=== PATIENT | female | born 1975 | race American Indian/Alaskan Native ===

== ENCOUNTER 2017-10-24 10:48 | Emergency (ER) | payer SELFPAY ==
--- NOTE | 2017-10-24 11:32 | Emergency Department Report ---
Blank Doc - Documentation Documentation: Patient is a 42-year-old Female who is presenting with some low abdominal cramping. Patient took a test approximately week ago which was positive at home. Patient last missed her period was a little over a month ago. Patient states she has some spotting yesterday but the spotting has resolved but the cramping is not. Patient also has some mild nausea which also has resolved. Brief focused physical exam patient has normal heart and lung exams abdomen soft and nontender. Patient will be sent for ultrasound quant and a urinalysis have been ordered.
--- NOTE | 2017-10-24 12:04 | Emergency Department Report ---
<ION TOWNSEND Samra - Last Filed: 10/24/17 12:04> ED Abdominal Pain HPI - General Chief Complaint: Abdominal Pain Stated Complaint: /ABD PAIN Time Seen by Provider: 10/24/17 11:24 Source: patient Mode of arrival: Ambulatory Limitations: No Limitations - Related Data Allergies Allergy/AdvReac Type Severity Reaction Status Date / Time No Known Allergies Allergy Unverified 10/24/17 10:53 ED Review of Systems ROS: Stated complaint: /ABD PAIN Other details as noted in HPI ED Past Medical Hx - Past Medical History Previous Medical History?: No - Surgical History Past Surgical History?: No - Social History Smoking Status: Never Smoker Substance Use Type: None ED Physical Exam - General Limitations: No Limitations ED Course Vital Signs 10/24/17 10:54 Temperature 98.2 F Pulse Rate 79 Respiratory 16 Rate Blood Pressure 118/74 O2 Sat by Pulse 100 Oximetry Critical care attestation.: If time is entered above; I have spent that time in minutes in the direct care of this critically ill patient, excluding procedure time. ED Disposition Clinical Impression: IUP (intrauterine ), incidental, Threatened miscarriage Subchorionic hematoma in first trimester Qualifiers: Fetus number: single or unspecified fetus Qualified Code(s): O41.8X10 - Other specified disorders of amniotic fluid and membranes, first trimester, not applicable or unspecified; O46.8X1 - Other antepartum hemorrhage, first trimester Disposition: DC-01 TO HOME OR SELFCARE Condition: Stable Instructions: Threatened Miscarriage (ED) Referrals: CARYN SHEPPARD MD [Staff Physician] - 3-5 Days <CORTNEY DEVRIES - Last Filed: 10/24/17 14:32> ED Abdominal Pain HPI - History of Present Illness Initial Comments: Please see my previous note for complete history Complaint: abdominal pain Location: suprapubic Radiation: none Severity scale (0 -10): 6 Quality: cramping Associated Symptoms: nausea. denies: diarrhea, fever, chills, constipation, dysuria, hematemesis, melena, hematuria, anorexia, syncope ED Review of Systems Comment: All other systems reviewed and negative ED Physical Exam - General General appearance: alert, in no apparent distress - Head Head exam: Present: atraumatic, normocephalic - Eye Eye exam: Present: normal appearance - ENT ENT exam: Present: mucous membranes moist - Neck Neck exam: Present: normal inspection - Respiratory Respiratory exam: Present: normal lung sounds bilaterally. Absent: respiratory distress, wheezes, rales - Cardiovascular Cardiovascular Exam: Present: regular rate, normal rhythm. Absent: systolic murmur, diastolic murmur, rubs, gallop - GI/Abdominal GI/Abdominal exam: Present: soft, normal bowel sounds. Absent: distended, tenderness, guarding, rebound - Extremities Exam Extremities exam: Present: normal inspection - Back Exam Back exam: Present: normal inspection - Neurological Exam Neurological exam: Present: alert, oriented X3 - Psychiatric Psychiatric exam: Present: normal affect, normal mood - Skin Skin exam: Present: warm, dry, intact, normal color. Absent: rash ED Medical Decision Making - Lab Data Lab Results 10/24/17 10/24/17 10/24/17 Range/Units 11:35 11:41 11:41 HCG, Quant 63334 H (0-4) mIU/mL Urine Color Straw (Yellow) Urine Turbidity Clear (Clear) Urine pH 8.0 H (5.0-7.0) Ur Specific [place] 1.005 (1.003-1.030) Urine Protein <15 mg/dl (Negative) mg/dL Urine Glucose (UA) Neg (Negative) mg/dL Urine Ketones Neg (Negative) mg/dL Urine Blood Neg (Negative) Urine Nitrite Neg (Negative) Urine Bilirubin Neg (Negative) Urine Urobilinogen < 2.0 (<2.0) mg/dL Ur Leukocyte Esterase Neg (Negative) Urine WBC (Auto) 1.0 (0.0-6.0) /HPF Urine RBC (Auto) 3.0 (0.0-6.0) /HPF U Epithel Cells (Auto) 3.0 (0-13.0) /HPF Urine Bacteria (Auto) 1+ (Negative) /HPF Blood Type B POSITIVE - Radiology Data Ordering Physician: CORTNEY DEVRIES MD Date of Service: 10/24/17 Procedure(s): US OB transvaginal Accession Number(s): [id number] cc: CORTNEY DEVRIES MD FINAL REPORT EXAM: US OB TRANSVAGINAL HISTORY: preg with vag bleed , [place] , [place] [id number] TECHNIQUE: Ultrasound evaluation of the gravid uterus with endovaginal technique PRIORS: Transabdominal Ob ultrasound 10/24/2017 FINDINGS: A gestational sac is present in the endometrial cavity containing a yolk sac and pole. viability is documented with evidence of cardiac activity. pole crown-rump length: 4.3 mm heart rate: 104 beats per minute Average estimated gestational age by ultrasound: 6 weeks 4 days Estimated delivery date: 06/15/2018 The uterine echotexture is homogenous and without evidence of mass. Nonspecific hypoechoic structure adjacent to the gestational sac is suggestive of subchorionic hemorrhage measuring 9 x 20 x 16 mm. No evidence of solid ovarian mass. 21 mm nonspecific simple appearing cyst in right ovary may be a corpus luteum. The adnexa are normal. There is nonspecific minimal cul-de-sac free fluid. IMPRESSION: Single viable early intrauterine with the above parameters Small hypoechoic collection adjacent to the gestational sac suggestive of subchorionic hemorrhage Simple appearing cyst in right ovary may be a corpus luteum Nonspecific minimal cul-de-sac free fluid may be physiologic Transcribed By: BAL Dictated By: AMARILYS WILCOX MD Electronically Authenticated By: AMARILYS WILCOX MD Signed Date/Time: 10/24/17 3063 - Medical Decision Making Patient was given educational information regarding subchorionic hemorrhages. Patient does have a viable IUP present. Patient instructed to do pelvic rest and rest until her bleeding and pain subsides. Patient referred to ENVIRONMENTAL EPIDEMIOLOGIST here in the [place] since the patient is from [place]. ED Disposition Is pt being admited?: No Does the pt Need Aspirin: No Time of Disposition: 14:31
[2017-10-24 12:12] LABS: Bacteria,Urine 1+ /HPF (Negative); Bilirubin,Urine NEG (Negative); Blood,Urine NEG (Negative); Color,Urine Straw (Yellow); Protein,Urine <15 mg/dL mg/dL (Negative); Urobilinogen,Urine < 2.0 mg/dL (<2.0)
--- NOTE | 2017-10-24 13:59 | Ultrasound Report ---
FINAL REPORT EXAM: US OB TRANSVAGINAL HISTORY: preg with vag bleed , [place] , [place] [id number] TECHNIQUE: Ultrasound evaluation of the gravid uterus with endovaginal technique PRIORS: Transabdominal Ob ultrasound 10/24/2017 FINDINGS: A gestational sac is present in the endometrial cavity containing a yolk sac and pole. viability is documented with evidence of cardiac activity. pole crown-rump length: 4.3 mm heart rate: 104 beats per minute Average estimated gestational age by ultrasound: 6 weeks 4 days Estimated delivery date: 06/15/2018 The uterine echotexture is homogenous and without evidence of mass. Nonspecific hypoechoic structure adjacent to the gestational sac is suggestive of subchorionic hemorrhage measuring 9 x 20 x 16 mm. No evidence of solid ovarian mass. 21 mm nonspecific simple appearing cyst in right ovary may be a corpus luteum. The adnexa are normal. There is nonspecific minimal cul-de-sac free fluid. IMPRESSION: Single viable early intrauterine with the above parameters Small hypoechoic collection adjacent to the gestational sac suggestive of subchorionic hemorrhage Simple appearing cyst in right ovary may be a corpus luteum Nonspecific minimal cul-de-sac free fluid may be physiologic
--- NOTE | 2017-10-24 14:02 | Ultrasound Report ---
FINAL REPORT EXAM: US OB < = 14 WEEKS FETUS, TRANSABDOMINAL HISTORY: preg with vag bleed TECHNIQUE: Ultrasound evaluation of the gravid uterus, transabdominal PRIORS: Endovaginal pelvic ultrasound 10/24/2017 FINDINGS: A gestational sac is present in the endometrial cavity containing a yolk sac and pole. viability is documented with evidence of cardiac activity. pole crown-rump length: 4.3 mm heart rate: 104 beats per minute Average estimated gestational age by ultrasound: 6 weeks 4 days Estimated delivery date: 06/15/2018 The uterine echotexture is homogenous and without evidence of mass. Nonspecific hypoechoic structure adjacent to the gestational sac is suggestive of subchorionic hemorrhage measuring 16 x 10 x 13 mm. No evidence of solid ovarian mass. 21 mm nonspecific simple appearing cyst in right ovary may be a corpus luteum. Similar structure left ovary measures 13 mm. The adnexa are normal. There is no visualized cul-de-sac free fluid. IMPRESSION: Single viable early intrauterine with the above parameters Small hypoechoic collection adjacent to the gestational sac suggestive of subchorionic hemorrhage Simple appearing cyst in right and left ovaries may be a corpus luteum
[2017-10-24 14:40] VITALS: BP 116/71
== END 2017-10-24 14:39 | disposition home or self-care (01) ==
LOC: ED 10:48
DX: O20.0 Threatened abortion (principal); O41.8X10 Other specified disorders of amniotic fluid and membranes, first trimester, not applicable or unspecified; Z3A.01 Less than 8 weeks gestation of pregnancy
CPT/HCPCS: 36415; 76801; 76817; 81001; 84702; 86900; 86901; 99284

== ENCOUNTER 2018-05-21 17:08 | Outpatient (CLI) | payer SELFPAY ==
[2018-05-21 18:26] VITALS: BP 116/76
--- NOTE | 2018-05-21 21:40 | Ultrasound Report ---
PROCEDURE: US OB LIMITED TECHNIQUE: Sonographic evaluation for breathing, movement, tone, and amniotic flui d volume was performed. HISTORY: Non reassuring NST COMPARISONS: None . FINDINGS: FETUS Amniotic fluid volume Normal-score 2. At least one vertical pocket >2 cm or more in vertical axis . breathing: Normal-score 2 . movement: Normal-score 2 . tone: Normal-score 2 . Score: 8 of 8 . IMPRESSION: Normal biophysical profile . This document is electronically signed by Marely Renteria MD., May 21 2018 09:38:15 PM ET
--- NOTE | 2018-05-21 21:44 | Ultrasound Report ---
PROCEDURE: Ultrasound limited TECHNIQUE: Real-time limited sonographic examination was performed for evaluation of amniotic fluid for each fetus with image documentation (1 or more fetuses). HISTORY: Nonreassuring NST COMPARISONS: None . FINDINGS: FETUS IUP: Single living intrauterine . Position: Cephalic . Amniotic fluid volume: Amniotic fluid index measures 10.5 cm Heart rate and rhythm: 167 BPM, Regular . IMPRESSION: Amniotic fluid index measures 10.5 cm. This document is electronically signed by Marely Renteria MD., May 21 2018 09:42:29 PM ET
== END 2018-05-21 19:42 | disposition home or self-care (01) ==
LOC: TRG 17:08
PROVIDERS: ATTEND Obstetrics & Gynecology
DX: O47.03 False labor before 37 completed weeks of gestation, third trimester (principal); Z3A.36 36 weeks gestation of pregnancy
CPT/HCPCS: 76815; 76819

== ENCOUNTER 2018-06-18 02:43 | Inpatient (IN) | payer OTHER ==
[2018-06-18] MEDS ORDERED: ceFAZolin 2 GM in NACL 0.9% 100 ML IV ONE (04:00)
[2018-06-18] MEDS ORDERED: LACTATED RINGERS 1,000 ML IV SCH (04:00)
[2018-06-18] MEDS ORDERED: POLYCILLIN/NS 2 GM/100 ML 2 GM/100 ML BAG IV ONE ×2 (04:50→05:00)
[2018-06-18] MEDS: STADOL IV PRN ×2 (04:56→15:43)
[2018-06-18] MEDS: LACTATED RINGERS 1,000 ML IV SCH ×2 (04:57→13:53)
[2018-06-18 05:01] LABS: Hematocrit 39.3 % (30.3-42.9); Mean Corpuscular HGB Conc 36 % (30-34); Mean Corpuscular Hemoglobin 30 pg (28-32); Mean Corpuscular Volume 84 fl (79-97); Platelet Count 170 K/mm3 (140-440); Red Blood Count 4.67 M/mm3 (3.65-5.03); Red Cell Distribution Width 14.9 % (13.2-15.2)
[2018-06-18] MEDS ORDERED: AMPICILLIN/NS 1 GM/50 ML 1 GM/50 ML BAG IV SCH (07:20)
[2018-06-18] MEDS ORDERED: BRETHINE SUB-Q PRN (13:00)
[2018-06-18] MEDS ORDERED: BRETHINE IVP PRN (13:00)
[2018-06-18] MEDS ORDERED: XYLOCAINE 2% INFILTRATI ONE (13:00)
[2018-06-18] MEDS ORDERED: MINERAL OIL PO PRN (13:00)
[2018-06-18] MEDS ORDERED: NARCAN 0.4 MG/1 ML IV PRN (13:00)
[2018-06-18] MEDS ORDERED: PITOCin/NS 30 UNIT/500ML 30 UNITS/500 ML BAG IV SCH (13:00)
--- NOTE | 2018-06-18 13:10 | History and Physical Report ---
History of Present Illness Date of examination: 06/18/18 (12:18) Date of admission: 06/18/18 03:47 Chief complaint: Intense labor pains History of present illness: 43 yo Fe , [place] 06/16/2018, 40w2d, presents in active labor. B positive, Rubella Immune, GBS Negative. Pt initiated early care with [facility] at 10 weeks gestation. risks: AMA 43 yo; Neg QUAD & Afp. Maternal SS trait; FOB Negative. 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 This is a different FOB (Neg SST)) Social history: no significant social history, single, lives with family. denies: smoking, alcohol abuse, prescription drug abuse, IV drug use, full code - Obstetrical History Expected Date of Delivery: 06/16/18 Actual Gestation: 40 Week(s) 2 Day(s) : 2 Para: 1 Hx # Term Pregnancies: 0 Number of Pregnancies: 0 Spontaneous Abortions: 0 Induced : 0 Number of Living Children: 1 #1 Gender: Male year: 2005 Birthweight: 4.082 kg Method of Delivery: Vaginal Gestational age at delivery: 40 Complications: none, other (PIH) Medications and Allergies Allergies Allergy/AdvReac Type Severity Reaction Status Date / Time No Known Allergies Allergy Unverified 10/24/17 10:53 Active Meds: Active Medications Butorphanol Tartrate (Stadol) 2 mg IV Q2H PRN PRN Reason: Pain , Severe (7-10) Last Admin: 06/18/18 04:56 Dose: 2 mg Documented by: Ampicillin Sodium (Ampicillin/Ns 1 Gm/50 Ml) 1 gm in 50 mls @ 100 mls/hr IV Q4HR LANEY; Protocol Last Admin: 06/18/18 09:16 Dose: 100 mls/hr Documented by: Lactated Ringer's (Lactated Ringers) 1,000 mls @ 125 mls/hr IV DIRECT LANEY Last Admin: 06/18/18 04:57 Dose: 125 mls/hr Documented by: Review of Systems Eyes: normal appearance Cardiovascular: no chest pain, no rapid/irregular heart beat, no shortness of breath Respiratory: no cough, no shortness of breath Breasts: normal Gastrointestinal: abdominal pain (Contractions), no nausea, no vomiting, no diarrhea, no constipation Genitourinary: normal appearance, contractions, no vaginal bleeding, no vaginal discharge, no leakage of fluid, no dysuria, no pelvic pain, no hematuria, no genital sores Musculoskeletal: other (denies) Integumentary: other (Denies) Neurological: other (Denies) Psychiatric: other (Denies) Endocrine: other (Denies) - Vital Signs Vital signs: Vital Signs Pulse BP 57 L 119/58 06/18/18 03:00 06/18/18 03:00 Temp Pulse Resp BP Pulse Ox 96.9 F L 61 16 123/69 06/18/18 04:28 06/18/18 12:56 06/18/18 07:30 06/18/18 12:56 - Physical Exam Breasts: Positive: normal Cardiovascular: Regular rate, Normal S1, Normal S2, No murmurs Lungs: Positive: Clear to auscultation, Normal air movement Abdomen: Positive: normal appearance, soft, normal bowel sounds. Negative: distention Genitourinary (Female): Positive: normal external genitalia, normal perenium Vulva: both: normal Uterus: Positive: enlarged (Gravid) Anus/Rectum: Positive: normal perianal skin Extremities: Positive: normal - Obstetrical FHR: auscultation normal, category 1 Uterine Contraction Monitor Mode: External Cervical Dilatation: 6 (AROM, Lg amt clear fluid 2 12:18) Cervical Effacement Percentage: 80 station: -2 Uterine Contraction Pattern: Regular Uterine Tone Measurement Phase: Resting Uterine Contraction Intensity: Moderate Results Result Diagrams: 06/18/18 04:30 Abnormal lab results 06/18/18 Range/Units 04:30 MCHC 36 H (30-34) % All other labs normal. Assessment and Plan A: Term IUP at 40w2d AMA; 43 yo GBS Negative Category 1 tracing Active labor AROM 06/18/2018 @12:18, lg amt clear fluid P: Routine labor orders Pain med/Epidural PRN Pitocin Augmentation Anticipate
[2018-06-18] MEDS ORDERED: NARCAN 2 MG/2 ML IV PRN (16:31)
--- NOTE | 2018-06-18 16:33 | Anesthesia Day of Surgery ---
Anesthesia Day of Surgery - Day of Surgery Patient Examined: Yes Patient H&P Reviewed: Yes Patient is NPO: Yes Beta Blockers: No Cardiac Clearance: No Pulmonary Clearance: No Tashi's Test: N/A
--- NOTE | 2018-06-18 16:33 | Anesthesia Consultation ---
Anesthesia Consult and Med Hx - Airway Anesthetic Teeth Evaluation: Good ROM Head & Neck: Adequate Mental/Hyoid Distance: Adequate Mallampati Class: Class I Intubation Access Assessment: Good - Pulmonary Exam CTA: Yes - Cardiac Exam Cardiac Exam: RRR - Pre-Operative Health Status ASA Pre-Surgery Classification: ASA2 Proposed Anesthetic Plan: Epidural - Pulmonary Hx Smoking: No Hx Asthma: No Hx Respiratory Symptoms: No COPD: No Hx Pneumonia: No - Cardiovascular System Hx Hypertension: No Hx Coronary Artery Disease: No Hx Heart Attack/AMI: No Hx Angina: No Hx Percutaneous Transluminal Coronary Angioplasty (PTCA): No Hx Cardia Arrhythmia: No Hx Pacemaker: No Hx Internal Defibrillator: No Hx Valvular Heart Disease: No Hx Heart Murmur: No Hx Peripheral Vascular Disease: No - Central Nervous System Hx Neuromuscular Disorder: No Hx Seizures: No Hx Psychiatric Problems: No - Gastrointestinal Hx Ulcer: No Hx Gastroesophageal Reflux Disease: Yes - Endocrine Hx Renal Disease: No Hx End Stage Renal Disease: No Hx Cirrhosis: No Hx Liver Disease: No Hx Insulin Dependent Diabetes: No Hx Non-Insulin Dependent Diabetes: No Hx Hypothyroidism: No Hx Hyperthyroidism: No - Hematic Hx Anemia: No Hx Sickle Cell Disease: No - Other Systems Hx Alcohol Use: No
[2018-06-18] MEDS ORDERED: fentaNYL-BUPIV 2 MCG/ML-0.125% 200 MCG/100 ML BAG EPIDURAL SCH (17:00)
[2018-06-18] MEDS ORDERED: MARCAINE 0.25% INFILTRATI ONE (17:01)
--- NOTE | 2018-06-18 20:09 | Progress Note ---
Assessment and Plan A: Term IUP at 40w2d AMA; 43 yo GBS Negative Category 1 tracing Active labor Pitocin 1mu Comfortable with epidural P: Routine labor orders Pitocin Augmentation Pt positioned far L lateral Anticipate Subjective - Subjective Date of service: 06/18/18 Principal diagnosis: term IUP, active labor Interval history: 43 yo Fe , [place] 06/16/2018, 40w2d, presents in active labor. B positive, Rubella Immune, GBS Negative. Pt initiated early care with [facility] at 10 weeks gestation. risks: AMA 43 yo; Neg QUAD & Afp. Maternal SS trait; FOB N egative. Patient reports: movement normal, contractions, other (Comfortable with epidural) Objective - Vital Signs Vital Signs: Vital Signs - 12hr 06/18/18 06/18/18 06/18/18 08:55 09:55 10:57 Temperature Pulse Rate 70 84 68 Respiratory Rate Blood Pressure 140/74 127/75 131/72 Blood Pressure [Right] O2 Sat by Pulse Oximetry 06/18/18 06/18/18 06/18/18 11:57 12:56 13:55 Temperature Pulse Rate 109 H 61 75 Respiratory Rate Blood Pressure 131/69 123/69 148/73 Blood Pressure [Right] O2 Sat by Pulse Oximetry 06/18/18 06/18/18 06/18/18 14:56 15:57 17:06 Temperature Pulse Rate 74 70 98 H Respiratory Rate Blood Pressure 117/74 139/76 Blood Pressure [Right] O2 Sat by Pulse 89 Oximetry 06/18/18 06/18/18 06/18/18 17:11 17:14 17:16 Temperature Pulse Rate 93 H 92 H 73 Respiratory Rate Blood Pressure Blood Pressure [Right] O2 Sat by Pulse 98 91 96 Oximetry 06/18/18 06/18/18 06/18/18 17:17 17:19 17:21 Temperature Pulse Rate 74 76 74 Respiratory Rate Blood Pressure 134/58 106/59 80/45 Blood Pressure [Right] O2 Sat by Pulse 97 Oximetry 06/18/18 06/18/18 06/18/18 17:23 17:25 17:26 Temperature Pulse Rate 73 94 H 115 H Respiratory Rate Blood Pressure 84/46 121/70 124/62 Blood Pressure [Right] O2 Sat by Pulse 97 Oximetry 06/18/18 06/18/18 06/18/18 17:29 17:31 17:33 Temperature Pulse Rate 81 79 105 H Respiratory Rate Blood Pressure 133/67 139/62 137/67 Blood Pressure [Right] O2 Sat by Pulse 97 Oximetry 06/18/18 06/18/18 06/18/18 17:35 17:36 17:37 Temperature Pulse Rate 75 67 77 Respiratory Rate Blood Pressure 133/74 130/56 Blood Pressure [Right] O2 Sat by Pulse 98 Oximetry 06/18/18 06/18/18 06/18/18 17:38 17:41 17:43 Temperature Pulse Rate 80 93 H 97 H Respiratory Rate Blood Pressure 129/60 132/62 141/57 Blood Pressure [Right] O2 Sat by Pulse 98 Oximetry 06/18/18 06/18/18 06/18/18 17:45 17:46 17:47 Temperature Pulse Rate 70 62 61 Respiratory Rate Blood Pressure 115/55 116/58 Blood Pressure [Right] O2 Sat by Pulse 99 Oximetry 06/18/18 06/18/18 06/18/18 17:51 17:56 18:01 Temperature Pulse Rate 70 68 68 Respiratory Rate Blood Pressure Blood Pressure [Right] O2 Sat by Pulse 99 98 98 Oximetry 06/18/18 06/18/18 06/18/18 18:02 18:06 18:11 Temperature Pulse Rate 71 61 72 Respiratory Rate Blood Pressure 111/57 Blood Pressure [Right] O2 Sat by Pulse 98 97 Oximetry 06/18/18 06/18/18 06/18/18 18:16 18:18 18:21 Temperature Pulse Rate 64 70 65 Respiratory Rate Blood Pressure 119/61 Blood Pressure [Right] O2 Sat by Pulse 97 97 Oximetry 06/18/18 06/18/18 06/18/18 18:25 18:26 18:31 Temperature Pulse Rate 73 65 74 Respiratory Rate Blood Pressure Blood Pressure [Right] O2 Sat by Pulse 94 97 96 Oximetry 06/18/18 06/18/18 06/18/18 18:33 18:36 18:41 Temperature Pulse Rate 69 59 L 67 Respiratory Rate Blood Pressure 94/52 Blood Pressure [Right] O2 Sat by Pulse 97 96 Oximetry 06/18/18 06/18/18 06/18/18 18:46 18:48 18:51 Temperature Pulse Rate 67 63 75 Respiratory Rate Blood Pressure 101/56 Blood Pressure [Right] O2 Sat by Pulse 98 89 96 Oximetry 06/18/18 06/18/18 06/18/18 18:56 19:01 19:03 Temperature Pulse Rate 75 68 68 Respiratory Rate Blood Pressure 108/52 Blood Pressure [Right] O2 Sat by Pulse 97 98 Oximetry 06/18/18 06/18/18 06/18/18 19:06 19:11 19:16 Temperature Pulse Rate 58 L 75 64 Respiratory Rate Blood Pressure Blood Pressure [Right] O2 Sat by Pulse 95 97 96 Oximetry 06/18/18 06/18/18 06/18/18 19:18 19:21 19:26 Temperature Pulse Rate 65 66 73 Respiratory Rate Blood Pressure 113/58 Blood Pressure [Right] O2 Sat by Pulse 96 94 Oximetry 06/18/18 06/18/18 06/18/18 19:31 19:33 19:36 Temperature 96.9 F L Pulse Rate 76 65 80 Respiratory 18 Rate Blood Pressure 109/55 139/63 Blood Pressure 139/63 [Right] O2 Sat by Pulse 97 98 Oximetry 06/18/18 06/18/18 06/18/18 19:41 19:46 19:47 Temperature Pulse Rate 70 65 64 Respiratory Rate Blood Pressure 102/58 Blood Pressure [Right] O2 Sat by Pulse 98 98 Oximetry 06/18/18 06/18/18 06/18/18 19:51 19:56 20:01 Temperature Pulse Rate 65 66 66 Respiratory Rate Blood Pressure Blood Pressure [Right] O2 Sat by Pulse 97 98 98 Oximetry 06/18/18 20:04 Temperature Pulse Rate 70 Respiratory Rate Blood Pressure 105/52 Blood Pressure [Right] O2 Sat by Pulse Oximetry - Exam Cardiovascular: Regular rate, Normal S1, Normal S2, No murmurs Lungs: Clear to auscultation, Normal air movement Abdomen: Present: normal appearance, soft, normal bowel sounds. Absent: distention Vulva: both: normal (normal bloody show. Clear fluid noted on towel) Uterus: Present: other (gravid) FHR: category 1 Uterine Contraction Monitor Mode: External Cervical Dilatation: 9 Cervical Effacement Percentage: 90 station: 0 Uterine Contraction Frequency (min): 2-5 Uterine Contraction Pattern: Regular Uterine Tone Measurement Phase: Resting Uterine Contraction Intensity: Moderate Extremities: normal Deep Tendon Reflex Grade: Normal +2 - Labs Labs: Abnormal Labs 06/18/18 04:30 MCHC 36 H Laboratory Results - last 24 hr 03/28/19 03/28/19 04:30 04:30 WBC 8.9 RBC 4.67 Hgb 14.0 Hct 39.3 MCV 84 MCH 30 MCHC 36 H RDW 14.9 Plt Count 170 Blood Type B POSITIVE Antibody Screen Negative
[2018-06-18] MEDS: PITOCin/NS 20 UNIT/1000ML DRIP 20 UNITS/1,000 ML BAG IV SCH ×2 (21:30→22:42)
[2018-06-18] MEDS ORDERED: LANSINOH TP PRN (22:01)
[2018-06-18] MEDS ORDERED: NORCO 5/325 PO PRN (22:01)
[2018-06-18] MEDS ORDERED: DULCOLAX PR PRN (22:01)
[2018-06-18] MEDS ORDERED: ZOFRAN IV PRN (22:01)
[2018-06-18] MEDS ORDERED: TYLENOL PO PRN (22:01)
[2018-06-18] MEDS ORDERED: BENADRYL PO PRN (22:01)
[2018-06-18] MEDS ORDERED: PHENERGAN PO PRN (22:01)
[2018-06-18] MEDS ORDERED: MILK OF MAGNESIA PO PRN (22:01)
[2018-06-18] MEDS ORDERED: TUCKS PAD TP PRN (22:01)
--- NOTE | 2018-06-18 22:09 | Procedure Note ---
OB Delivery Note - Delivery Date of Delivery: 06/18/18 (21:29) Surgeon: DEE DEE SALINAS Estimated blood loss: <100cc - Vaginal Delivery presentation: vertex Delivery position: OA Intrapartum events: mult.variable deceleratio Delivery induction: none Delivery augmentation: rupture of membranes, pitocin Delivery monitor: external FHT, external uterine Route of delivery: (21:29) Delivery placenta: spontaneous (21:34) Delivery cord: nuchal cord (x1), 3 umbilical vessels Episiotomy: none Delivery laceration: 1st degree (small; left unrepaired) Anesthesia: epidural Delivery comments: viable male infant, ANGELITO position, tight nuchal cord delivered intact via somersault maneuver at 21:29. Infant dried, stimulated then placed [id number] on mothers abdomen with strong lusty cry. Delayed cord clamping; then cut by pt's niece with my guidance. Spontaneous tai delivery of intact placenta at 21:34. FF@U, bleeding scant. Small first degree perineal laceration approximates well. left unrepaired. Placenta discarded per hospital policy. EBL 50cc. Infant and mother left in stable condition in L&D. - A at 1 minute: 8 at 5 minutes: 9 Gender: Male (8lbs 0oz, 3642 grams, 20")
--- NOTE | 2018-06-18 22:19 | Post Anesthesia Evaluation ---
- Post Anesthesia Evaluation Patient Participated: Yes Airway Patent: Yes Stable Respiratory Function: Yes Nausea/Vomiting: No Temp > 96.8F: Yes Pain Manageable: Yes Adequeate Hydration: Yes Anesthesia Complications: No Block Receding Appropriately: Yes Patient on Ventilator: No
[2018-06-18] MEDS: MOTRIN PO SCH (23:00)
[2018-06-18] MEDS ORDERED: SODIUM CHLORIDE FLUSH SYRINGE 10 ML IV PRN (23:00)
--- NOTE | 2018-06-19 10:20 | Progress Note ---
Assessment and Plan - Patient Problems (1) Status post normal vaginal delivery Current Visit: Yes Status: Acute Plan to address problem: PPD 1 - stable Continue routine PP orders Anticipate discharge in 24-48 hours Subjective - Subjective Date of service: 06/19/18 Principal diagnosis: PPD #1, s/p Interval history: see H&P, OB Progress Note and OB Delivery Procedure Note Patient reports: appetite normal, voiding normally, pain well controlled, ambulating normally, no dizzy ambulation [place]: doing well Objective - Vital Signs Latest vital signs: Vital Signs Temp Pulse Resp BP BP Pulse Ox 06/19/18 09:17 97.8 F 69 20 106/69 97 06/19/18 06:17 97.9 F 18 100/60 06/19/18 06:15 97.9 F 57 L 18 100/60 97 06/19/18 00:00 16 06/18/18 23:57 98.5 F 69 20 122/66 06/18/18 23:00 18 06/18/18 22:51 72 99 06/18/18 22:46 70 97 06/18/18 22:41 70 97 06/18/18 22:36 69 97 06/18/18 22:31 71 97 06/18/18 22:26 69 97 06/18/18 22:21 67 97 06/18/18 22:17 67 131/70 06/18/18 22:16 70 99 06/18/18 22:11 75 98 06/18/18 22:06 74 98 06/18/18 22:02 75 134/67 06/18/18 22:01 77 99 06/18/18 21:56 74 98 06/18/18 21:51 78 98 06/18/18 21:47 77 122/62 06/18/18 21:46 78 98 06/18/18 21:42 86 18 122/62 98 06/18/18 21:41 84 98 06/18/18 21:40 75 122/62 06/18/18 21:36 78 98 06/18/18 21:33 83 115/81 06/18/18 21:31 86 98 06/18/18 21:26 93 H 98 06/18/18 21:21 89 99 06/18/18 21:18 78 115/58 06/18/18 21:16 79 98 06/18/18 21:11 82 98 06/18/18 21:06 85 99 06/18/18 21:04 71 130/61 06/18/18 21:01 76 98 06/18/18 20:56 71 99 06/18/18 20:51 78 98 06/18/18 20:48 71 118/53 06/18/18 20:46 66 98 06/18/18 20:41 71 98 06/18/18 20:36 82 98 06/18/18 20:33 64 124/60 06/18/18 20:31 71 99 06/18/18 20:26 69 97 06/18/18 20:21 82 98 06/18/18 20:17 68 137/62 06/18/18 20:16 68 98 06/18/18 20:11 71 98 06/18/18 20:06 74 97 06/18/18 20:04 70 105/52 06/18/18 20:01 66 98 06/18/18 19:56 66 98 06/18/18 19:51 65 97 06/18/18 19:47 64 102/58 06/18/18 19:46 65 98 06/18/18 19:41 70 98 06/18/18 19:36 96.9 F L 80 18 139/63 139/63 98 06/18/18 19:33 65 109/55 06/18/18 19:31 76 97 06/18/18 19:26 73 94 06/18/18 19:21 66 96 06/18/18 19:18 65 113/58 06/18/18 19:16 64 96 06/18/18 19:11 75 97 06/18/18 19:06 58 L 95 06/18/18 19:03 68 108/52 06/18/18 19:01 68 98 06/18/18 18:56 75 97 06/18/18 18:51 75 96 06/18/18 18:48 63 101/56 89 06/18/18 18:46 67 98 06/18/18 18:41 67 96 06/18/18 18:36 59 L 97 06/18/18 18:33 69 94/52 06/18/18 18:31 74 96 06/18/18 18:26 65 97 06/18/18 18:25 73 94 06/18/18 18:21 65 97 06/18/18 18:18 70 119/61 06/18/18 18:16 64 97 06/18/18 18:11 72 97 06/18/18 18:06 61 98 06/18/18 18:02 71 111/57 06/18/18 18:01 68 98 06/18/18 17:56 68 98 06/18/18 17:51 70 99 06/18/18 17:47 61 116/58 06/18/18 17:46 62 99 06/18/18 17:45 70 115/55 06/18/18 17:43 97 H 141/57 06/18/18 17:41 93 H 132/62 98 06/18/18 17:38 80 129/60 06/18/18 17:37 77 130/56 06/18/18 17:36 67 98 06/18/18 17:35 75 133/74 06/18/18 17:33 105 H 137/67 06/18/18 17:31 79 139/62 97 06/18/18 17:29 81 133/67 06/18/18 17:26 115 H 124/62 97 06/18/18 17:25 94 H 121/70 06/18/18 17:23 73 84/46 06/18/18 17:21 74 80/45 97 06/18/18 17:19 76 106/59 06/18/18 17:17 74 134/58 06/18/18 17:16 73 96 06/18/18 17:14 92 H 91 06/18/18 17:11 93 H 98 06/18/18 17:06 98 H 89 06/18/18 15:57 70 139/76 06/18/18 14:56 74 117/74 06/18/18 13:55 75 148/73 06/18/18 12:56 61 123/69 06/18/18 11:57 109 H 131/69 06/18/18 10:57 68 131/72 Intake and Output 06/18/18 06/19/18 06/19/18 23:59 07:59 15:59 Intake Total 161.333 360 360 Output Total 1500 Balance 161.333 -1140 360 Intake: IV 161.333 PITOCin/NS 20 UNIT/1000ML 150 DRIP 20 units In 1,000 ml @ 125 mls/hr IV [facility] Rx#:[id number] PITOCin/NS 30 UNIT/500ML 11.333 30 units In 500 ml @ 4 mls/hr IV TITR [facility] Rx#: [id number] Intake, Free Water 360 360 Output: Urine 1500 Void 1500 Other: Total, Output Amount 700 # Voids Void 1 Estimated Blood Loss 50 - Exam Cardiovascular: Present: Regular rate Lungs: Present: Clear to auscultation Abdomen: Present: normal appearance, soft Vulva: both: normal Uterus: Present: normal, firm, fundal height at umbilicus Extremities: Present: normal Comments: small lochia
[2018-06-19 10:50] LABS: Hemoglobin 12.2 gm/dl (10.1-14.3)
[2018-06-19 10:51] LABS: Hematocrit 33.2 % (30.3-42.9)
[2018-06-20] MEDS ORDERED: BOOSTRIX IM ONE (06:00)
[2018-06-20] MEDS: MOTRIN PO SCH ×2 (06:29→11:45)
[2018-06-20 10:36] VITALS: BP 108/58
--- NOTE | 2018-06-20 11:15 | Progress Note ---
Assessment and Plan A: day 2 S/P spontaneous vaginal delivery. P: Discharge patient home today when baby is able to go. discharge instructions and warning signs discussed with patient. Advised patient to continue taking her vitamins at home. Advised patient to avoid intercourse, lifting and heavy housework, and driving. Advised patient to follow up at OB clinic in 6 weeks for exam. Patient voiced understanding of all instructions. Subjective - Subjective Date of service: 06/20/18 Principal diagnosis: PPD #2, s/p Interval history: day 2 S/P spontaneous vaginal delivery. Doing well. Desires discharge today. Patient reports a small amount of lochia. She is voiding without difficulty. Ambulating well. Tolerating a regular diet. Patient denies headache, chest pain, cough, shortness of breath, leg pain, heavy bleeding, symptoms of depression, or any other problems. Patient reports: appetite normal, voiding normally, pain well controlled, flatus , ambulating normally, no dizzy ambulation, no nauseated : doing well Objective - Vital Signs Latest vital signs: Vital Signs Temp Pulse Resp BP BP Pulse Ox 06/20/18 08:55 97.4 F L 72 20 108/58 99 06/20/18 07:29 18 06/20/18 06:29 18 06/20/18 00:35 97.2 F L 65 16 102/53 100 06/19/18 16:20 75 110/63 98 Intake and Output 06/19/18 06/20/18 06/20/18 23:59 07:59 15:59 Intake Total 1200 600 Output Total 1 Balance 1200 599 Intake: Oral 480 Intake, Free Water 720 600 Output: Urine 1 Void 1 Other: Total, Intake Amount 480 Total, Output Amount 2 # Voids Void 1 1 - Exam Cardiovascular: Present: Regular rate, Normal S1, Normal S2, No murmurs Lungs: Present: Clear to auscultation Abdomen: Present: normal appearance, soft, normal bowel sounds. Absent: distention, tenderness, guarding, rigidity Uterus: Present: normal, firm, fundal height below umbilicus. Absent: bogginess, tenderness Extremities: Present: normal. Absent: tenderness, edema
--- NOTE | 2018-06-20 11:18 | Discharge Summary ---
Providers - Providers Date of Admission: 06/18/18 03:47 Date of discharge: 06/20/18 Attending physician: FRANCHESKA LITTLE MD Primary care physician: FRANCHESKA LITTLE MD Hospitalization Reason for admission: active labor Delivery: Episiotomy: none Laceration: 1st degree Other procedures: none complications: none Discharge diagnosis: IUP at term delivered [place] baby: male Pertinent studies: Labs Hospital course: Normal hospital course. Condition at discharge: Good Disposition: DC-01 TO HOME OR SELFCARE - Discharge Diagnoses (1) Term delivered Status: Acute Plan - Provider Discharge Summary Activity: routine, no sex for 6 weeks, no heavy lifting 4 weeks, no strenuous exercise Diet: routine Instructions: routine Additional instructions: Continue to take your vitamins at home. Call your doctor immediately for: * Fever > 100.5 * Heavy vaginal bleeding ( >1 pad per hour) * Severe persistent headache * Shortness of breath * Reddened, hot, painful area to leg or breast - Follow up plan Follow up: FRANCHESKA LITTLE MD [Primary Care Provider] - 6 Weeks Forms: [facility] Discharge Summary
[2018-06-20] MEDS ORDERED: AFLURIA QUAD 2018-2019 SYRINGE IM ONE (12:00)
== END 2018-06-20 15:57 | disposition home or self-care (01) | DRG 807 ==
LOC: TRG 02:43 → LD 03:47 → TRG 03:47 → OB 06-19 00:37
PROVIDERS: ADMIT Obstetrics & Gynecology; ATTEND Obstetrics & Gynecology
PROC: 10E0XZZ Delivery of Products of Conception, External Approach (ICD-10-PCS; principal; 2018-06-18)
PROC: 10907ZC Drainage of Amniotic Fluid, Therapeutic from Products of Conception, Via Natural or Artificial Opening (ICD-10-PCS; 2018-06-18)
PROC: 3E0R3BZ Introduction of Anesthetic Agent into Spinal Canal, Percutaneous Approach (ICD-10-PCS; 2018-06-18)
PROC: 00HU33Z Insertion of Infusion Device into Spinal Canal, Percutaneous Approach (ICD-10-PCS; 2018-06-18)
PROC: 3E0234Z Introduction of Serum, Toxoid and Vaccine into Muscle, Percutaneous Approach (ICD-10-PCS; 2018-06-20)
DX: O76 Abnormality in fetal heart rate and rhythm complicating labor and delivery (principal); Z37.0 Single live birth; O69.1XX0 Labor and delivery complicated by cord around neck, with compression, not applicable or unspecified; Z3A.40 40 weeks gestation of pregnancy; O70.0 First degree perineal laceration during delivery; O99.62 Diseases of the digestive system complicating childbirth; K21.9 Gastro-esophageal reflux disease without esophagitis
CPT/HCPCS: 36415; 85014; 85018; 85027; 86850; 86900; 86901; 90471; 90686; 90715; G0378; J0290; J0595; J0690; J2590; J7120